=== PATIENT | female | born 1945 | race Caucasian/White ===

== ENCOUNTER 2019-01-13 13:36 | Inpatient (IN) | payer MEDICARE, BC ==
[2019-01-13] MEDS ORDERED: Morphine 2 MG/ML Syringe IV PRN (14:33)
[2019-01-13] MEDS ORDERED: Ciprofloxacin in D5W 200 ML IV SCH ×2 (14:45→16:00)
[2019-01-13] MEDS ORDERED: Diatrizoate Meglumine/Diatrizoate Sodium 37% 30 ML Bottle PO ONE (15:11)
[2019-01-13] MEDS ORDERED: Iopamidol 755 Mg/ML 100 ML Bottle IVPUSH ONE (15:11)
[2019-01-13] MEDS ORDERED: Sodium Chloride 0.9% 50 ML IV SCH (15:15)
[2019-01-13] MEDS: Sodium Chloride 0.9% 1,000 ML IV SCH (15:44)
[2019-01-13] MEDS: metroNIDAZOLE/Normal Saline 100 ML IV SCH (16:08)
--- NOTE | 2019-01-13 16:17 | CT ---
[id number] CT/CT Abdomen Pelvis W IV EXAM: CT Abdomen Pelvis W IV CLINICAL DATA: LEFT LOWER QUADRANT PAIN COMPARISON: CORRELATION IS MADE WITH THE CAT SCAN OF MARCH 21, 2014. FINDINGS: There is mild sigmoid colonic diverticulosis with no ally diverticulitis. The uterus and ovaries appear to have been removed. There is no evidence of appendicitis. The pelvis shows no mass or adenopathy. There are diffuse moderate atheromatous calcifications. The gallbladder is contracted. The liver and spleen, kidneys, adrenals, aorta, and pancreas show no acute abnormalities. There is no free air or free fluid. There is no bowel obstruction. There is a loop of bowel that appears adherent to the anterior abdominal wall perhaps related to adhesions and previous surgery. Tiny nodule at the right lung base is seen on image 1, series 2. A similar finding on the left is seen on image 2, series 2. IMPRESSION: LOOP OF SMALL BOWEL ADJACENT TO ANTERIOR ABDOMINAL WALL PERHAPS ADHERENT TO PERITONEAL SURFACE RELATED TO PREVIOUS SURGERY. INTERVAL RESECTION OF UTERUS AND OVARIES SINCE LAST CAT SCAN. MILD UNCOMPLICATED DIVERTICULAR DISEASE. Amado Davey MD 01/13/19 [id number] Thank you for allowing us to participate in the care of your patient.
[2019-01-13] MEDS ORDERED: Sodium Chloride 0.9% 10 ML Syringe IV PRN (17:10)
[2019-01-13] MEDS: Pantoprazole 40 MG Vial IVPUSH SCH (19:51)
[2019-01-13] MEDS ORDERED: Isosorbide Mononitrate 30 MG Tab.ER PO SCH (21:00)
[2019-01-13] MEDS ORDERED: Aspirin 325 MG Tab.EC PO SCH (21:00)
[2019-01-13] MEDS ORDERED: Simvastatin 20 MG Tab PO SCH (21:00)
[2019-01-13] MEDS: B.Bifidum/B.Longum/L.Acidophilus/L.Rhamnosus (Probiotic) Cap PO SCH (21:34)
[2019-01-14] MEDS: metroNIDAZOLE/Normal Saline 100 ML IV SCH (00:34)
[2019-01-14] MEDS: Sodium Chloride 0.9% 1,000 ML IV SCH (00:42)
[2019-01-14 06:58] VITALS: BP 118/59
[2019-01-14] MEDS ORDERED: Levothyroxine 88 MCG Tab PO SCH (07:30)
[2019-01-14 07:54] LABS: ANION GAP 16.5 mmol/L (5-15); CHLORIDE,CL 102 mmol/L (98-115); SODIUM,NA 140 mmol/L (136-145)
[2019-01-14] MEDS ORDERED: metroNIDAZOLE/Normal Saline 100 ML IV SCH (08:00)
[2019-01-14] MEDS: B.Bifidum/B.Longum/L.Acidophilus/L.Rhamnosus (Probiotic) Cap PO SCH (08:17)
[2019-01-14] MEDS: Pantoprazole 40 MG Vial IVPUSH SCH (08:18)
[2019-01-14] MEDS ORDERED: Lisinopril 20 MG Tab PO SCH (09:00)
[2019-01-14] MEDS ORDERED: Hydrochlorothiazide/Triamterene 25-37.5 MG Cap PO SCH (09:00)
[2019-01-14] MEDS ORDERED: Sertraline 50 MG Tab PO SCH (09:00)
--- NOTE | 2019-01-16 09:07 | DISCH ---
ADMITTING DIAGNOSIS: Left lower quadrant pain. DISCHARGE DIAGNOSIS: Mild diverticulosis. BRIEF HISTORY AND ESSENTIAL PHYSICAL FINDINGS: This is a very pleasant 73-year- old female patient who presents to clinic with left lower quadrant pain. The patient does have a past medical history of diverticulosis. She was then in quite a bit of discomfort in clinic. Lab work was unremarkable in the clinic. CBC was within normal range at 10.8. She was admitted for observation and further testing. Upon admission, the patient did have a CT of her abdomen. She was also given some morphine 1 mg IV right after admission. SIGNIFICANT LABS XRAYS AND CONSULTATION FINDINGS: The patient's lab work in the clinic showed a white count within normal range at 10.8. The patient's followup lab work that she had obtained in the clinic on day of discharge, 01/14/2019; CBC showed a white count within normal range at 6.9, hemoglobin 12.2, and platelet count at 179. Chemistry panel was unremarkable. Urinalysis was also unremarkable in the hospital. CT of the abdomen and pelvis: The impression states that she has a loop of small bowel adjacent to anterior abdominal wall, perhaps adherent to peritoneal surface leading to previous surgery. The patient did have a hysterectomy surgery 3 years ago and also states in the report that interval resection of uterus and ovary since last CAT scan also shows mild, obligated diverticular disease with no ally diverticulitis seen. COURSE IN HOSPITAL WITH COMPLICATIONS IF ANY: The patient had this pain. She received 1 mg of morphine IV right after she was admitted. She states that she has had no further pain or nausea or any diarrhea since admission. She states she has felt fine since after she got admitted and had morphine. CONDITION TREATMENT AND FINAL DISPOSITION ON DISCHARGE AND PROGNOSIS: CONDITION: Stable. FINAL DISPOSITION: The patient will go home with her . IMPRESSION AND PLAN: 1. Left lower quadrant abdominal pain. Plan: The patient's lab work and CAT scan are unremarkable. She does have a history of diverticulosis. I did discuss the diet with the patient and foods that she could probably avoid that would help with the diverticulosis. I am going to send her home with Bentyl 10 mg tablet, she can take every 6 hours as needed for abdominal cramping or abdominal pain. No other medication changes. She will follow up Neda Jeong in the clinic next week. 2. History of hypertension. Plan: Continue with Imdur 15 mg at bedtime along with lisinopril 20 mg daily. 3. History of hyperlipidemia. Plan: Continue with Zocor 20 mg at bedtime. 4. History of depression. Plan: Continue with Zoloft 50 mg daily. 5. History of hypothyroidism. Plan: Continue with levothyroxine 88 mcg daily. /[id number]/MODL MTDD
== END 2019-01-14 10:48 | disposition home or self-care (01) | DRG 392 ==
LOC: KA.MS 13:36
PROVIDERS: ADMIT Physician Assistant Medical; ATTEND Nurse Practitioner Family
DX: K57.30 Diverticulosis of large intestine without perforation or abscess without bleeding (principal); Z68.42 Body mass index [BMI] 45.0-49.9, adult; F32.9 Major depressive disorder, single episode, unspecified; E03.9 Hypothyroidism, unspecified; I10 Essential (primary) hypertension; M19.90 Unspecified osteoarthritis, unspecified site; F41.9 Anxiety disorder, unspecified; E78.49 Other hyperlipidemia; E66.9 Obesity, unspecified; Z90.710 Acquired absence of both cervix and uterus; Z79.82 Long term (current) use of aspirin
CPT/HCPCS: 36415; 74177; 80048; 81001; 85025; A9270-GY; C9113; J0744; J2270; J3490; J7030; J7050; Q9963; Q9967

== ENCOUNTER 2023-01-05 08:45 | Day surgery (SDC) | payer MEDICARE, BC ==
[2023-01-05] MEDS ORDERED: Sodium Chloride 0.9% 10 ML Syringe FLUSH PRN (09:00)
[2023-01-05] MEDS: Lactated Ringers 1,000 ML IV SCH (09:30)
[2023-01-05] MEDS ORDERED: Midazolam 1 MG/ML 2 ML SDV ONE (09:37)
[2023-01-05] MEDS ORDERED: Propofol 200 MG/20 ML SDV ONE (09:37)
[2023-01-05 14:07] VITALS: BP 108/66; PULSE 77
== END 2023-01-05 12:35 | disposition home or self-care (01) ==
LOC: KA.SDS 08:45
PROVIDERS: ATTEND Family Medicine
DX: Z12.11 Encounter for screening for malignant neoplasm of colon (principal); K57.30 Diverticulosis of large intestine without perforation or abscess without bleeding; K63.5 Polyp of colon; I10 Essential (primary) hypertension; E78.2 Mixed hyperlipidemia; I25.10 Atherosclerotic heart disease of native coronary artery without angina pectoris; E03.9 Hypothyroidism, unspecified; E66.01 Morbid (severe) obesity due to excess calories; E27.8 Other specified disorders of adrenal gland; F41.1 Generalized anxiety disorder; M89.9 Disorder of bone, unspecified; Z79.899 Other long term (current) drug therapy; Z87.19 Personal history of other diseases of the digestive system; Z79.82 Long term (current) use of aspirin; Z79.890 Hormone replacement therapy; Z98.890 Other specified postprocedural states; Z68.38 Body mass index [BMI] 38.0-38.9, adult
CPT/HCPCS: 00812; J2250; J2704; J7120

== ENCOUNTER 2025-06-13 11:35 | Emergency (ER) | payer MEDICARE ==
[2025-06-13] MEDS: Lidocaine 1% with EPINEPHrine 1:100,000 20 ML MDV INJECT ONE (12:15)
[2025-06-13] MEDS: Lidocaine 1% with EPINEPHrine 1:100,000 20 ML MDV ONE (12:25)
[2025-06-13] MEDS: Diphtheria,Pertussis(Acell),Tetanus Vaccine 0.5 ML Syringe IM ONE (12:49)
[2025-06-13] MEDS: Bacitracin/Neomycin/Polymyxin B Oint 0.9 GM U/D Packet ONE (13:00)
[2025-06-13] MEDS: Bacitracin/Neomycin/Polymyxin B Oint 0.9 GM U/D Packet TOP ONE (13:28)
[2025-06-13 13:38] VITALS: BP 134/53; PULSE 63
== END 2025-06-13 13:14 | disposition home or self-care (01) ==
LOC: KA.ED 11:41
DX: S01.81XA Laceration without foreign body of other part of head, initial encounter (principal); Z23 Encounter for immunization; I10 Essential (primary) hypertension; K21.9 Gastro-esophageal reflux disease without esophagitis; E78.00 Pure hypercholesterolemia, unspecified; E66.9 Obesity, unspecified; E03.9 Hypothyroidism, unspecified; Z88.2 Allergy status to sulfonamides; Z88.8 Allergy status to other drugs, medicaments and biological substances; Z79.82 Long term (current) use of aspirin; Z79.890 Hormone replacement therapy; Z79.899 Other long term (current) drug therapy; Z90.710 Acquired absence of both cervix and uterus; Z68.39 Body mass index [BMI] 39.0-39.9, adult; W01.0XXA Fall on same level from slipping, tripping and stumbling without subsequent striking against object, initial encounter
CPT/HCPCS: 12011; 90471; 90715; 99283; 99284-25; J2004

== ENCOUNTER 2025-09-28 12:58 | Emergency (ER) | payer MEDICARE ==
[2025-09-28 13:20] VITALS: BP 107/59; PULSE 82
[2025-09-28] MEDS ORDERED: Sodium Chloride 0.9% 10 ML Syringe FLUSH PRN (13:25)
[2025-09-28 13:35] LABS: BASOPHILS ABSOLUTE AUTO 0.02 10^3/uL (0.00-0.10); BASOPHILS PERCENT AUTO 0.3 % (0.0-1.0); EOSINOPHILS ABSOLUTE AUTO 0.32 10^3/uL (0.10-0.30); EOSINOPHILS PERCENT AUTO 4.7 % (1.0-3.0); IMMATURE GRAN ABSOLUTE AUTO 0.08 10^3/uL (0.00-0.04); IMMATURE GRAN PERCENT AUTO 1.2 % (0.0-0.4); LYMPHOCYTES ABSOLUTE AUTO 1.75 10^3/uL (1.00-4.00); LYMPHOCYTES PERCENT AUTO 25.4 % (20.0-40.0); MEAN PLATELET VOLUME 9.8 fL (7.4-10.4); MONOCYTES ABSOLUTE AUTO 0.66 10^3/uL (0.10-0.80); MONOCYTES PERCENT AUTO 9.6 % (2.0-8.0); NEUTROPHILS ABSOLUTE AUTO 4.05 10^3/uL (2.50-7.00); NEUTROPHILS PERCENT AUTO 58.8 % (50.0-70.0); PLATELET COUNT,PLT 194 10^3/uL (150-400); RED BLOOD CELL COUNT 4.23 10^6/uL (3.80-5.50); RED CELL DISTRIBUTION WIDTH 13.5 % (11.5-14.5); WHITE BLOOD CELL COUNT,WBC 6.88 10^3/uL (5.00-10.00)
[2025-09-28 13:56] LABS: ALANINE AMINOTRANSFERASE,ALT 25 U/L (14-63); ASPARTATE AMNIOTRANSFERASE,AST 24 U/L (15-37); BILIRUBIN TOTAL 0.5 mg/dL (0.2-1.0); BLOOD UREA NITROGEN,BUN 22 mg/dL (7-18); CARBON DIOXIDE,CO2 32.7 mmol/L (21.0-32.0); CHLORIDE,CL 102 mmol/L (98-107); CREATININE 0.63 mg/dL (0.51-1.17); ESTIMATED GFR 90 mL/min (>=60); GLUCOSE RANDOM 159 mg/dL (70-140); POTASSIUM,K 4.3 mmol/L (3.5-5.1); PROTEIN TOTAL,TP 6.7 g/dL (6.4-8.2); SODIUM,NA 139 mmol/L (136-145)
[2025-09-28 14:03] LABS: APPEARANCE,URINE TURBID (CLEAR)
[2025-09-28 14:04] LABS: GLUCOSE,URINE NEGATIVE (NEGATIVE); OCCULT BLOOD,URINE LARGE (NEGATIVE)
[2025-09-28 14:06] LABS: EPITHELIAL CELLS,URINE RARE /LPF
== END 2025-09-28 15:00 ==
LOC: KA.ED 12:58 → SUPCPDRO 12:58 → KA.ED 15:00
DX: S00.03XA Contusion of scalp, initial encounter (principal); I69.320 Aphasia following cerebral infarction; I25.10 Atherosclerotic heart disease of native coronary artery without angina pectoris; I10 Essential (primary) hypertension; E78.00 Pure hypercholesterolemia, unspecified; K21.9 Gastro-esophageal reflux disease without esophagitis; E03.9 Hypothyroidism, unspecified; E66.9 Obesity, unspecified; Z90.710 Acquired absence of both cervix and uterus; Z79.899 Other long term (current) drug therapy; Z79.82 Long term (current) use of aspirin; Z88.8 Allergy status to other drugs, medicaments and biological substances; Z88.2 Allergy status to sulfonamides; W05.0XXA Fall from non-moving wheelchair, initial encounter; W22.8XXA Striking against or struck by other objects, initial encounter
CPT/HCPCS: 70450; 71045; 80053; 81001; 85025; 87086; 87088; 99285